=== PATIENT | female | born 1985 | race Caucasian/White ===

== ENCOUNTER 2017-08-01 14:24 | Outpatient (CLI) | payer OTHER ==
[2017-08-01 15:12] VITALS: BP 110/72
--- NOTE | 2017-08-01 16:14 | Ultrasound Report ---
FINAL REPORT EXAM: US OB BPP WO NON-STRESS HISTORY: WELL BEING TECHNIQUE: Grayscale and color doppler ultrasound of the fetus was performed for biophysical profile. PRIORS: None. FINDINGS: A single, live intrauterine fetus is present in cephalic presentation with a heart rate of 134 beats per minute. The placenta is anterior in location. Estimated gestational age is 38 weeks and 6 days with an JUD of 08/09/2017. Biophysical profile score of 8 out of 8 was noted. Scores of 2 out of 2 were given for breathing movements, movements, posterior and tone and qualitative amniotic fluid volume. IMPRESSION: Normal biophysical profile.
--- NOTE | 2017-08-01 16:17 | Ultrasound Report ---
FINAL REPORT EXAM: US OB LIMITED HISTORY: WELL BEING TECHNIQUE: Grayscale and color doppler ultrasound of the fetus was performed. PRIORS: None. FINDINGS: A single, live intrauterine fetus is present in cephalic presentation with a heart rate of 134 beats per minute. The placenta is grade 2 and anterior in location. The amniotic fluid index is 12.5 centimeters. Estimated gestational age is 38 weeks and 6 days with an JUD of 08/09/2017. IMPRESSION: Live intrauterine fetus in cephalic presentation. Amniotic fluid index of 12.5 centimeters.
== END 2017-08-01 15:45 | disposition home or self-care (01) ==
LOC: TRG 14:24
PROVIDERS: ATTEND Obstetrics & Gynecology
DX: O47.1 False labor at or after 37 completed weeks of gestation (principal); Z3A.38 38 weeks gestation of pregnancy
CPT/HCPCS: 59025; 76815; 76819